=== PATIENT | female | born 1980 | race Two or more races ===

== ENCOUNTER 2025-03-24 18:16 | Emergency (ER) | payer SELFPAY ==
[~2025-03-24] VITALS: Ht 160 cm; Wt 101.5 kg
--- NOTE | 2025-03-24 18:22 | ED.PDOC ---
History of Present Illness(SKN HPI Comments 44-year-old female presents to the ED chief complaint possible bug bite. Patient states noticed a pimple like lesion to the left corner of her mouth and attempted to pop it she notes since has been increasing redness and swelling and pain. Describes pain as throbbing in nature 6/10 on pain scale radiates up to left jaw cheek. She reports no fevers chills nausea vomiting. Notes no history of diabetes. Time Seen by MD: 18:20 History of Present Illness: Nurses Notes, Medications, Allergies Allergies: Coded Allergies: NO KNOWN ALLERGIES (Unverified , 03/24/25) Information Source: Patient Past Medical History PAST MEDICAL HISTORY: Denies Surgical History: Denies all surgeries KNOWLEDGE ANALYST History: No Pertinent KNOWLEDGE ANALYST History Family History Family History: Reviewed,noncontributory to illness Constitutional: denies: chills, diaphoresis, fatigue, fever, malaise, sweats, weakness, others EENTM: denies: blurred vision, double vision, ear bleeding, ear discharge, ear drainage, ear pain, ear ringing, eye pain, eye redness, hearing loss, mouth pain, mouth swelling, nasal discharge, nose bleeding, nose congestion, nose pain, photophobia, tearing, throat pain, throat swelling, voice changes, others Respiratory: denies: cough, hemoptysis, orthopnea, SOB at rest, shortness of breath, SOB with excertion, stridor, wheezing, others Cardiovascular: denies: chest pain, dizzy spells, diaphoresis, Dyspnea on exertion, edema, irregular heart beat, left arm pain, lightheadedness, palpitations, PND, syncope, others Gastrointestinal: denies: abdomen distended, abdominal pain, blood streaked bowels, constipated, diarrhea, dysphagia, difficulty swallowing, hematemesis, melena, nausea, poor appetite, poor fluid intake, rectal bleeding, rectal pain, vomiting, others Genitourinary: denies: abnormal vagina bleeding, burning, dyspareunia, dysuria, flank pain, frequency, hematuria, incontinence, pain, , vagina discharge, urgency, others Neurological: denies: dizziness, fainting, headache, left sided numbness, left sided weakness, numbness, paresthesia, pre-existing deficit, right sided numbness, right sided weakness, seizure, speech problems, tingling, tremors, weakness, others Musculoskeletal: denies: back pain, gout, joint pain, joint swelling, muscle pain, muscle stiffness, neck pain, others Integumetry: reports: wounds (Lesion to left corner of mouth); denies: bruises, change in color, change in hair/nails, dryness, laceration, lesions, lumps, rash, others Allergic/Immunocompromised: denies: Difficulty Healing, Frequent Infections, Hives, Itching, others Hematologic/Lymphatic: denies: anemia, blood clots, easy bleeding, easy bruising, swollen glands, others Endocrine: denies: excessive hunger, excessive sweating, excessive thirst, excessive urination, flushing, intolerance to cold, intolerance to heat, unexplained weight gain, unexplained weight loss, others Psychiatric: denies: anxiety, bipolar disorder, depression, hopeless, panic disorder, schizophrenia, sleepless, suicidal, others Physical Exam General Appearance: No Apparent Distress, Normal HEENT: Pharynx Normal Neck: Full Range of Motion, Non-Tender Respiratory: Lungs Clear, No Respiratory Distress, Normal Breath Sounds Cardiovascular: No Murmur, Normal Peripheral Pulses, Regular Rate/Rhythm Breast Exam: Deferred Gastrointestinal: Non Tender, Soft Genitalia: Deferred Pelvic: Deferred Rectal: Deferred Extremities: Normal capillary refill, Normal inspection, Normal range of motion, Non-tender, No pedal edema Musculoskeletal : Apperance: Normal Neurologic: Alert, No Motor Deficits, Normal Affect, Normal Mood, No Sensory Deficits Cerebellar Function: Normal Reflexes: Normal Skin: Dry, Normal Color, Warm, Wounds (Indurated lesion left corner of mouth with surrounding erythema mild to moderate edema no noted drainage or streaking moderate tenderness on palpation not warmth to touch) Lymphatic: No Adenopathy Was a procedure done? Was a procedure done?: No Differential Diagnosis (INTG) Differential Diagnosis: Abrasion, Cellulitis, Hematoma, Insect Envenomation, Laceration, Puncture Wound X-Ray, Labs, Meds, VS Vital Signs Date Time Temp Pulse Resp B/P (MAP) Pulse Ox O2 Delivery O2 Flow Rate FiO2 03/24/25 18:25 98.8 88 18 111/48 (69) 96 98.8 X-Ray, Labs, Meds, VS Comment Patient given Rocephin IM and Toradol 60 mg IM reports improvement requesting discharge at this time. Script trial of doxy and ibuprofen advised to take medications as prescribed side effects discussed. Advised to follow up with her PCP or urgent care or back here in 2 days for wound re-evaluation. ER return precautions given patient indicates understanding and agrees with discharge plan of care. Time of 1ST Reevaluation: 18:22 Reevaluation 1ST: Unchanged Time of 2ND Reevaluation: 19:19 Reevaluation 2ND: Improved Patient Education/Counseling: Diagnosis, Treatment, Prognosis, Need For Follow Up Family Education/Counseling: No Family Present SEPSIS Sepsis Screen Vital Signs Date Time Temp Pulse Resp B/P (MAP) Pulse Ox O2 Delivery O2 Flow Rate FiO2 03/24/25 18:25 98.8 88 18 111/48 (69) 96 98.8 Departure 1 Departure Time of Disposition: 19:18 Impression: Primary Impression: Bug bite of face with infection Qualified Codes: S00.86XA - Insect bite (nonvenomous) of other part of head, initial encounter; L08.9 - Local infection of the skin and subcutaneous tissue, unspecified; W57.XXXA - Bitten or stung by nonvenomous insect and other nonvenomous arthropods, initial encounter Disposition: 01 HOME / SELF CARE / HOMELESS Condition: Stable e-Prescriptions Ibuprofen (Ibuprofen) 800 Mg Tab 800 MG PO Q8HP PRN for 5 Days, #15 TAB Prov: ZE WREN 03/24/25 Doxycycline Hyclate (Doxycycline Hyclate) 100 Mg Cap 100 MG PO BID for 7 Days, #14 CAP Prov: ZE WREN 03/24/25 Discharged With: Self Critical Care Note Critical Care Time?: No Stability Stability form required: No ZE WREN Mar 24, 2025 18:22
[2025-03-24] MEDS ORDERED: DOXY100C4 PO (19:19)
[2025-03-24] MEDS ORDERED: IBUP-1456 PO (19:19)
[2025-03-24 19:39] VITALS: BP 115/61; PULSE 66; RESP 20; TEMP 98.5; O2SAT 97
[2025-03-24] MEDS: cefTRIAXone SOD 1,000 MG VL IM ONE (22:15)
[2025-03-24] MEDS: KETOROLAC TROMETH 60MG/2ML VIAL IM ONE (22:15)
== END 2025-03-24 22:16 | disposition home or self-care (01) ==
LOC: ER 18:16
DX: S00.86XA Insect bite (nonvenomous) of other part of head, initial encounter (principal); W57.XXXA Bitten or stung by nonvenomous insect and other nonvenomous arthropods, initial encounter; Y93.89 Activity, other specified; Y92.89 Other specified places as the place of occurrence of the external cause; Y99.8 Other external cause status
CPT/HCPCS: 96372; 99284; J0696; J1885